=== PATIENT | female | born 1990 | race Caucasian/White ===

== ENCOUNTER 2022-12-15 09:24 | Outpatient (CLI) | payer OTHER, SELFPAY ==
[2022-12-15 13:06] LABS: Basophils Percent Auto 0.4 % (0.2-1.2); Eosinophils Absolute Auto 0.1 K/mm3 (0-0.3); Eosinophils Percent Auto 1.3 % (0-4.4); Hematocrit 39.9 % (37.0-47.0); Hemoglobin 12.8 g/dL (12.0-15.0); Immature Granulocyte Absolute 0.02 K/mm3 (0.00-0.031); Immature Granulocyte Percent A 0.4 % (0-0.5); Lymphocytes Absolute Auto 1.37 K/mm3 (0.9-3.2); Mean Corpuscular HGB Conc 32.1 g/dl (32-36); Mean Corpuscular Volume 93.7 fl (80-100); Mean Platelet Volume 12.5 fl (7.4-10.4); Monocytes Absolute Auto 0.4 K/mm3 (0.1-0.6); Monocytes Percent Auto 8.5 % (2.6-8.5); Neutrophils Absolute Auto 2.9 K/mm3 (1.3-6.7); Neutrophils Percent Auto 60.4 % (45.5-73.1); Platelet Count Result 227 k/mm3 (150-375); Red Blood Count 4.26 M/mm3 (4.2-5.4); Red Cell Distribution Width 12.1 % (11.5-14.5); White Blood Count 4.7 K/mm3 (4.5-10.0)
[2022-12-15 13:20] LABS: Alanine Aminotransferase 24 U/L (6-35); Albumin Level 4.4 g/dL (3.5-5.1); Alkaline Phosphatase 51 U/L (38-126); Anion Gap 7 mmol/L (8-16); Aspartate Amino Transferase 34 U/L (14-36); Bilirubin,Total 0.5 mg/dL (0.2-1.3); Blood Urea Nitrogen 14 mg/dL (7-17); Calcium 9.2 mg/dL (8.4-10.2); Carbon Dioxide 30 mmol/L (22-30); Chloride 102 mmol/L (98-107); Cholesterol 184 mg/dL (0-200); Estimated Glomerular Filt Rate > 60; Glucose 86 mg/dL (65-110); HDL Direct 36 mg/dL; Potassium 4.6 mmol/L (3.4-5.0); Sodium 139 mmol/L (137-145); Triglycerides 223 mg/dL (<150)
[2022-12-15 13:22] LABS: Hemoglobin A1C 5.2 % (<5.7)
[2022-12-15 13:32] LABS: LDL Cholesterol Direct 97 mg/dL
[2022-12-15 13:44] LABS: Vitamin D 25 Hydroxy 43.5 ng/mL
== END 2022-12-15 09:25 | disposition home or self-care (01) ==
LOC: ANHGOSHLAB 09:26
PROVIDERS: PCP Family Medicine; Visit Provider Nurse Practitioner Family
DX: Z00.00 Encounter for general adult medical examination without abnormal findings (principal); Z13.220 Encounter for screening for lipoid disorders; Z13.21 Encounter for screening for nutritional disorder; Z13.29 Encounter for screening for other suspected endocrine disorder; I10 Essential (primary) hypertension; Z13.1 Encounter for screening for diabetes mellitus
CPT/HCPCS: 36415; 80053; 80061; 82306; 83036; 84443; 85025

== ENCOUNTER 2023-06-15 09:29 | Outpatient (CLI) | payer OTHER, SELFPAY ==
[2023-06-15 12:42] LABS: Basophils Percent Auto 0.3 % (0.2-1.2); Eosinophils Percent Auto 0.8 % (0-4.4); Hematocrit 40.7 % (37.0-47.0); Hemoglobin 13.4 g/dL (12.0-15.0); Immature Granulocyte Absolute 0.02 K/mm3 (0.00-0.031); Immature Granulocyte Percent A 0.5 % (0-0.5); Lymphocytes Absolute Auto 1.32 K/mm3 (0.9-3.2); Lymphocytes Percent Auto 34.6 % (18.3-44.2); Mean Corpuscular HGB Conc 32.9 g/dl (32-36); Mean Corpuscular Hemoglobin 29.7 pg (26-34); Mean Corpuscular Volume 90.2 fl (80-100); Mean Platelet Volume 12.6 fl (7.4-10.4); Monocytes Absolute Auto 0.3 K/mm3 (0.1-0.6); Monocytes Percent Auto 8.4 % (2.6-8.5); Neutrophils Absolute Auto 2.1 K/mm3 (1.3-6.7); Neutrophils Percent Auto 55.4 % (45.5-73.1); Platelet Count Result 189 k/mm3 (150-375); Red Blood Count 4.51 M/mm3 (4.2-5.4); Red Cell Distribution Width 12.6 % (11.5-14.5); White Blood Count 3.8 K/mm3 (4.5-10.0)
[2023-06-15 12:58] LABS: Alanine Aminotransferase 23 U/L (6-35); Albumin Level 4.2 g/dL (3.5-5.1); Alkaline Phosphatase 62 U/L (38-126); Anion Gap 3 mmol/L (8-16); Aspartate Amino Transferase 35 U/L (14-36); Bilirubin,Total 0.5 mg/dL (0.2-1.3); Blood Urea Nitrogen 15 mg/dL (7-17); Calcium 9.3 mg/dL (8.4-10.2); Carbon Dioxide 31 mmol/L (22-30); Chloride 105 mmol/L (98-107); Cholesterol 151 mg/dL (0-200); Estimated Glomerular Filt Rate > 60; Glucose 96 mg/dL (65-110); HDL Direct 33 mg/dL; Phosphorus 3.7 mg/dL (2.5-4.5); Potassium 4.6 mmol/L (3.4-5.0); Sodium 139 mmol/L (137-145); Triglycerides 261 mg/dL (<150)
[2023-06-15 13:09] LABS: LDL Cholesterol Direct 84 mg/dL
[2023-06-15 13:35] LABS: Creatinine Urine 117.6 mg/dL
[2023-06-15 13:40] LABS: MALB Creatinine Ratio 7.6 mg/g (0-30); Microalbumin Urine Random 8.9 mg/L (0-16.7)
[2023-06-15 13:59] LABS: Hemoglobin A1C 5.8 % (<5.7)
== END 2023-06-15 09:30 | disposition home or self-care (01) ==
LOC: ANHGOSHLAB 09:30
PROVIDERS: PCP Family Medicine; Visit Provider Nurse Practitioner Family
DX: E55.9 Vitamin D deficiency, unspecified (principal); E78.5 Hyperlipidemia, unspecified; I10 Essential (primary) hypertension; M32.9 Systemic lupus erythematosus, unspecified; E11.9 Type 2 diabetes mellitus without complications
CPT/HCPCS: 36415; 80053; 80061; 80069; 82043; 83036; 84443; 85025

== ENCOUNTER 2023-12-14 08:10 | Outpatient (CLI) | payer OTHER, SELFPAY ==
--- NOTE | ~2023-12-14 | XR_ITS ---
Clinical Indication: Fever PA and lateral views of the chest: Comparison: 01/10/2012 Findings: There is linear scar or atelectasis right lung base. The lungs are otherwise clear, without evidence of focal consolidation or pleural effusion. Cardiomediastinal silhouette is within normal limits. Bones and soft tissues are unremarkable. Impression: Linear scar or atelectasis right lung base, otherwise clear lungs. Reviewed, dictated and finalized at location M. Impression: Linear scar or atelectasis right lung base, otherwise clear lungs.
== END 2023-12-14 08:11 | disposition home or self-care (01) ==
PROVIDERS: PCP Family Medicine; Visit Provider Family Medicine
DX: U07.1 COVID-19 (principal)
CPT/HCPCS: 71046

== ENCOUNTER 2024-01-10 08:52 | Outpatient (CLI) | payer OTHER, SELFPAY ==
[2024-01-10 19:00] LABS: Basophils Percent Auto 0.3 % (0.2-1.2); Eosinophils Absolute Auto 0.1 K/mm3 (0-0.3); Eosinophils Percent Auto 2.5 % (0-4.4); Hematocrit 37.7 % (37.0-47.0); Immature Granulocyte Absolute 0.02 K/mm3 (0.00-0.031); Immature Granulocyte Percent A 0.6 % (0-0.5); Lymphocytes Absolute Auto 0.62 K/mm3 (0.9-3.2); Lymphocytes Percent Auto 19.3 % (18.3-44.2); Mean Corpuscular HGB Conc 31.8 g/dl (32-36); Mean Corpuscular Hemoglobin 29.7 pg (26-34); Mean Corpuscular Volume 93.3 fl (80-100); Mean Platelet Volume 12.3 fl (7.4-10.4); Monocytes Absolute Auto 0.2 K/mm3 (0.1-0.6); Monocytes Percent Auto 5.3 % (2.6-8.5); Neutrophils Absolute Auto 2.3 K/mm3 (1.3-6.7); Platelet Count Result 161 k/mm3 (150-375); Red Blood Count 4.04 M/mm3 (4.2-5.4); Red Cell Distribution Width 12.8 % (11.5-14.5); White Blood Count 3.2 K/mm3 (4.5-10.0)
== END 2024-01-10 08:53 | disposition home or self-care (01) ==
LOC: ANHGOSHLAB 08:53
PROVIDERS: PCP Family Medicine; Visit Provider Family Medicine
DX: R05.3 Chronic cough (principal); M32.9 Systemic lupus erythematosus, unspecified; I10 Essential (primary) hypertension
CPT/HCPCS: 36415; 85025

== ENCOUNTER 2024-01-10 09:40 | Outpatient (CLI) | payer OTHER, SELFPAY ==
--- NOTE | ~2024-01-10 | XR_ITS ---
Clinical Indication: Chronic cough PA and lateral views of the chest: Comparison: 12/14/2023 Findings: The lungs are clear, without evidence of focal consolidation or pleural effusion. Cardiome diastinal silhouette is within normal limits. Bones and soft tissues are unremarkable. Impression: Normal chest. Reviewed, dictated and finalized at location . Impression: Normal chest.
== END 2024-01-10 09:41 | disposition home or self-care (01) ==
PROVIDERS: PCP Family Medicine; Visit Provider Family Medicine
DX: R05.3 Chronic cough (principal)
CPT/HCPCS: 71046